=== PATIENT | male | born 1965 | race Caucasian/White ===

== ENCOUNTER → 2023-07-11 11:08 | Outpatient (BNVA) | payer MEDICAID, SELFPAY | PROVIDERS: Visit Provider Nurse Practitioner Family | DX: Z79.899 Other long term (current) drug therapy (principal); Z01.89 Encounter for other specified special examinations; E55.9 Vitamin D deficiency, unspecified; Z13.6 Encounter for screening for cardiovascular disorders; Z12.5 Encounter for screening for malignant neoplasm of prostate; M50.30 Other cervical disc degeneration, unspecified cervical region; M51.36 Other intervertebral disc degeneration, lumbar region; Z87.81 Personal history of (healed) traumatic fracture | CPT/HCPCS: 80053; 80061; 81003; 82306; 83036; 84443; 85025; G0103 ==

== ENCOUNTER → 2024-02-12 09:41 | Outpatient (BNVA) | payer MEDICAID, SELFPAY | PROVIDERS: PCP Nurse Practitioner Family; Visit Provider Nurse Practitioner Family | DX: Z79.899 Other long term (current) drug therapy (principal) | CPT/HCPCS: 80053; 85025 ==

== ENCOUNTER → 2024-02-14 09:41 | Outpatient (BNVA) | payer MEDICAID, SELFPAY | PROVIDERS: PCP Nurse Practitioner Family; Visit Provider Nurse Practitioner Family | DX: D69.6 Thrombocytopenia, unspecified (principal); R74.8 Abnormal levels of other serum enzymes | CPT/HCPCS: 80074 ==

== ENCOUNTER → 2024-02-15 00:02 | Outpatient (BNVA) | payer MEDICAID, SELFPAY | PROVIDERS: PCP Nurse Practitioner Family; Visit Provider Nurse Practitioner Family | DX: B18.2 Chronic viral hepatitis C (principal) | CPT/HCPCS: 87522 ==

== ENCOUNTER → 2024-02-20 09:38 | Outpatient (BNVA) | payer MEDICAID, SELFPAY | PROVIDERS: PCP Nurse Practitioner Family; Visit Provider Nurse Practitioner Family | DX: B18.2 Chronic viral hepatitis C (principal) | CPT/HCPCS: 87522; 87902 ==

== ENCOUNTER 2024-03-05 09:14 | Outpatient (CLI) | payer MEDICAID, SELFPAY ==
--- NOTE | 2024-03-05 09:30 | US_ITS ---
WS: [id number] ULTRASOUND SOFT TISSUES LEFT supraclavicular region. HISTORY: R22.1 - Localized swelling, mass and lump, neck COMPARISON: None available. TECHNIQUE: 2-D and color Doppler imaging is submitted. No significant abnormality is noted within the LEFT supraclavicular region at the site of the palpabl e abnormality. There are a few small lymph nodes noted in each supraclavicular region. US/US soft tissue head neck 55715 IMPRESSION: Negative ultrasound LEFT supraclavicular region.
== END 2024-03-05 09:15 | disposition home or self-care (01) ==
LOC: RAD 09:14
PROVIDERS: PCP Nurse Practitioner Family; Visit Provider Nurse Practitioner Family
DX: R22.1 Localized swelling, mass and lump, neck (principal)
CPT/HCPCS: 76536

== ENCOUNTER 2024-03-12 09:18 | Outpatient (CLI) | payer MEDICAID, SELFPAY ==
--- NOTE | 2024-03-12 09:30 | US_ITS ---
WS: [id number] RIGHT UPPER QUADRANT ULTRASOUND HISTORY: R74.8 - Abnormal levels of other serum enzymes COMPARISON: None available. Liver: 15.7 cm in length. Normal size liver and echogenicity. No bile duct dilatation or mass. Portal Vein: Normal hepatopetal flow with monophasic waveform. Gallbladder: Normally distended gallbladder. There are small gallbladder wall nodules which are not m obile and do not shadow. The largest measures 5 mm. CBD: 0.4 cm Pancreas: Completely obscured by bowel gas. Right kidney: 12.1 cm in length. Normal size and echogenicity. No hydronephrosis or mass. Aorta and IVC: Unremarkable abdominal aorta and IVC. No ascites. US/US liver [id number] IMPRESSION: 1. Normal size liver with no bile duct dilatation. 2. Normal size gallbladder with several small gallbladder polyps.
[2024-03-12 10:09] LABS: Tumor Marker Alpha Fetoprotein 6.5 ng/mL (0-8.3)
== END 2024-03-12 09:19 | disposition home or self-care (01) ==
LOC: RAD 09:18
PROVIDERS: PCP Nurse Practitioner Family; Visit Provider Nurse Practitioner Family
DX: R74.8 Abnormal levels of other serum enzymes (principal); B18.2 Chronic viral hepatitis C
CPT/HCPCS: 36415; 76705; 82105

== ENCOUNTER → 2024-04-03 14:05 | Outpatient (BNVA) | payer MEDICAID, SELFPAY | PROVIDERS: PCP Nurse Practitioner Family; Visit Provider Family Medicine | DX: B18.2 Chronic viral hepatitis C (principal) | CPT/HCPCS: 80053; 85025; 87806 ==

== ENCOUNTER → 2024-08-20 10:40 | Outpatient (BNVA) | payer MEDICAID, SELFPAY | PROVIDERS: PCP Nurse Practitioner Family; Visit Provider Nurse Practitioner Family | DX: B18.2 Chronic viral hepatitis C (principal) | CPT/HCPCS: 80053; 87522 ==

== ENCOUNTER → 2024-09-02 09:29 | Outpatient (BNVA) | payer MEDICAID, SELFPAY | PROVIDERS: PCP Nurse Practitioner Family; Visit Provider Nurse Practitioner | DX: M19.012 Primary osteoarthritis, left shoulder (principal) | CPT/HCPCS: 73030 ==

== ENCOUNTER → 2024-12-24 10:04 | Outpatient (BNVA) | payer MEDICAID, SELFPAY | PROVIDERS: PCP Nurse Practitioner Family; Visit Provider Nurse Practitioner Family | DX: B18.2 Chronic viral hepatitis C (principal) | CPT/HCPCS: 87522 ==